=== PATIENT | male | born 1965 | race Caucasian/White ===

== ENCOUNTER 2021-12-31 14:41 | Emergency (ER) | payer MEDICARE ==
[~2021-12-31] VITALS: Ht 172.7 cm; Wt 88.5 kg
[2021-12-31] MEDS ORDERED: Prozac40 MG PO (15:10)
[2021-12-31] MEDS ORDERED: Prinivil10 MG PO (15:10)
[2021-12-31] MEDS ORDERED: LIDO700A20 TOP (15:54)
[2021-12-31] MEDS ORDERED: Robaxin750 MG PO (15:54)
== END 2021-12-31 16:14 | disposition home or self-care (01) ==
LOC: ER 14:41
DX: M54.50 Low back pain, unspecified (principal)
CPT/HCPCS: 72100; 96365; 99283-25; A9270; J1885

== ENCOUNTER 2022-03-04 14:54 | Emergency (ER) | payer MEDICARE ==
[~2022-03-04] VITALS: Ht 172.7 cm; Wt 86.2 kg
[~2022-03-04 14:54] MED LIST: LIDO700A20 TOP; Prinivil10 MG PO; Prozac40 MG PO; Robaxin750 MG PO
[2022-03-04 15:43] LABS: BASOPHILS ABSOLUTE AUTO 0.07 K/mm3 (0.00-0.23); BASOPHILS PERCENT AUTO 1 % (0-2); EOSINOPHILS ABSOLUTE AUTO 0.17 K/mm3 (0.00-0.68); EOSINOPHILS PERCENT AUTO 3 % (0-6); Hematocrit 43.6 % (37.0-53.0); Hemoglobin 15.3 g/dL (13.5-17.5); IMMATURE GRAN ABSOLUTE AUTO 0.01 K/mm3 (0.00-0.10); IMMATURE GRAN PERCENT AUTO 0 % (0-1); LYMPHOCYTES ABSOLUTE AUTO 2.13 K/mm3 (0.84-5.20); LYMPHOCYTES PERCENT AUTO 32 % (21-46); MONOCYTES ABSOLUTE AUTO 0.64 K/mm3 (0.16-1.47); MONOCYTES PERCENT AUTO 10 % (4-13); Mean Corpuscular HGB 31.5 pg (26.0-34.0); Mean Corpuscular HGB Conc 35.1 g/dL (31.5-36.5); Mean Corpuscular Volume 90 fL (80-100); Mean Platelet Volume 9.4 fL (9.1-12.4); NEUTROPHILS PERCENT AUTO 55 % (41-73); NRBC ABSOLUTE 0.02 K/mm3 (0.00-0.02); NRBC Auto 0.3 /100 WBC (0.0-0.2); Platelet Count 262 K/mm3 (150-400); RDW Coefficient Variation 13.2 % (11.7-14.2); Red Blood Cell Count 4.86 M/mm3 (4.30-5.90); White Blood Cell Count 6.72 K/mm3 (4.00-11.30)
[2022-03-04 16:10] LABS: Albumin, Blood 3.5 g/dL (3.4-5.0); Albumin/Globulin Ratio 1.2 (0.8-1.8); Bilirubin, Total 0.6 mg/dL (0.1-1.0); Bun/Creatinine Ratio 21.1 (12.0-20.0); Calcium, Blood 8.5 mg/dL (8.5-10.1); Creatinine, Blood 0.67 mg/dL (0.60-1.20); Potassium, Blood 3.9 mmol/L (3.5-5.5); Total Protein, Blood 6.5 g/dL (6.4-8.2)
[2022-03-04] MEDS ORDERED: ROSU10TA PO (18:15)
[2022-03-04] MEDS ORDERED: TAMS.4ER PO (18:15)
[2022-03-04] MEDS ORDERED: MECL25 PO (18:46)
== END 2022-03-04 20:10 | disposition home or self-care (01) ==
LOC: ER 14:54
PROVIDERS: Physician Assistant
DX: R42 Dizziness and giddiness (principal); Z86.73 Personal history of transient ischemic attack (TIA), and cerebral infarction without residual deficits; Z98.890 Other specified postprocedural states
CPT/HCPCS: 36415; 70450; 80053; 85025; 99284-25; A9270